=== PATIENT | female | born 2000 | race Hispanic/Latino ===

== ENCOUNTER 2022-03-03 19:41 | Emergency (ER) | payer OTHER, SELFPAY ==
--- NOTE | ~2022-03-03 | US_ITS ---
EXAMINATION: US OB <=14 wk fetus w TV DATE: 03/03/2022 22:08 INDICATION: Vaginal cramping. Evaluate for ectopic . TECHNIQUE: Real-time transabdominal and transvaginal obstetric ultrasound. FINDINGS: No prior studies for comparison. The uterus measures 8.1 x 6.8 x 4.4 cm. There is thickened endometrium measuring 1.8 cm. There is a s mall cyst contained in the endometrium measuring 0.53 cm corresponding to a 5 week 0 day gestation. N o pole identified. The ovaries are within normal limits with a 1.2 cm follicle in the right ova ry. Right ovary measures 3.1 x 2.6 x 2.2 cm. Left ovary measures 3.2 x 2.4 x 2.9 cm. IMPRESSION: 1. Thickened endometrium with possible gestational sac which would correspond to a 5 week 0 day gesta tion. No pole identified. Differential diagnosis includes very early intrauterine and less likely failed and ectopic . Recommend follow-up with serial quantitative bet a-hCG levels and ultrasound as clinically indicated. Reviewed, dictated and finalized at location A. IMPRESSION: 1. Thickened endometrium with possible gestational sac which would correspond t o a 5 week 0 day gestation. No pole identified. Differential diagnosis in cludes very early intrauterine and less likely failed and e ctopic . Recommend follow-up with serial quantitative beta-hCG levels and ultrasound as clinically indicated.
[2022-03-03 19:59] VITALS: BP 141/92; PULSE 114; RESP 20; TEMP 36.4; O2SAT 99
--- NOTE | 2022-03-03 20:51 | ED.ABDPAIN ---
HPI - Abdominal Pain General Chief Complaint: Abdominal Pain Stated Complaint: cramping, + preg test yesterday Time Seen by Provider: 03/03/22 20:16 Source: patient Mode of arrival: ambulatory Limitations: no limitations History of Present Illness HPI narrative: This is a 22 year old female who presents for evaluation of lower abdominal cramping . She states she had positive test yesterday. She developed intermittent lower abdominal cramping at 3 am this morning. Her cramping has increased in frequency although she denies any pain now. Her last menstrual gavi was 01/22/2022. She had nausea and vomiting yesterday. She denies vaginal bleeding or spotting today. She has never been before MD elicited complaint: abdominal pain Related Data Allergies Allergy/AdvReac Type Severity Reaction Status Date / Time No Known Allergies Allergy Verified 03/03/22 20:02 Review of Systems Review of Systems: All systems reviewed & are unremarkable except as noted in HPI and below Cardiovascular: Cardiovascular: Denies chest pain and Denies rapid heart rate Respiratory: Respiratory: Denies chest congestion Gastrointestinal: Gastrointestinal: Reports abdominal pain, Denies diarrhea, Reports nausea and Reports vomiting Genitourinary: Genitourinary: Denies nocturia and Denies dysuria Musculoskeletal: Musculoskeletal: Denies back pain PMFSH Past Medical History Medical History (Updated 03/03/22 @ 23:13 by Odalys Eid MD) Patient denies medical problems Surgical History Surgical History (Updated 03/03/22 @ 20:53 by Odalys Eid MD) No pertinent past surgical history Social History Social History (Updated 03/03/22 @ 20:53 by Odalys Eid MD) Smoking status: Never smoker Exam Narrative: GENERAL: Well-appearing, well-nourished, and in no acute distress. HEAD: Normocephalic, atraumatic EYES: PERRLA and EOMI, conjunctiva clear without discharge NECK: Supple, without lymphadenopathy or mass RESPIRATORY: No respiratory distress, Airway patent, Respirations non-labored, Clear to auscultation without rales, rhonchi or wheeze HEART: Regular rate and rhythm. No murmur heard. Normal peripheral pulses. ABDOMEN: Soft, TTP suprapubic, nondistended, normal active bowel sounds. No masses. No rebound or guarding, No organomegaly. EXTREMITIES: No edema, normal strength with full range of motion. SKIN: Warm, dry, normal color without rash NEURO: Alert and oriented x3. CN 2-12 grossly intact. No focal deficits. PSYCH: Normal mood and affect. Course Reevaluation(s) Reevaluation #1: I Discussed case with Dr. Appiah. She agrees patient should have repeat hcg on and she should call office to [facility] to schedule follow up . Date: 03/03/22 Time: 23:10 Vital Signs Vital signs: Vital Signs Temperature 97.5 F L 03/03/22 19:59 Pulse Rate 114 H 03/03/22 19:59 Respiratory Rate 20 03/03/22 19:59 Blood Pressure 141/92 H 03/03/22 19:59 Pulse Oximetry 99 03/03/22 19:59 Oxygen Delivery Room Air 03/03/22 19:59 Temperature 97.5 F L 03/03/22 19:59 Pulse Rate 114 H 03/03/22 19:59 Respiratory Rate 20 03/03/22 19:59 Blood Pressure 141/92 H 03/03/22 19:59 Pulse Oximetry 99 03/03/22 19:59 Oxygen Delivery Room Air 03/03/22 19:59 MDM - Abdominal Pain Lab Data Attestation: I reviewed the patient's lab results. Result diagrams: 03/03/22 20:56 03/03/22 20:56 Labs: Lab Results 03/03/22 03/03/22 03/03/22 Range/Units 20:56 20:56 20:56 WBC 13.4 H (4.5-10.0) K/mm3 RBC 4.87 (4.2-5.4) M/mm3 Hgb 13.7 (12.0-15.0) g/dL Hct 41.4 (37.0-47.0) % MCV 85.0 (80-100) fl MCH 28.1 (26-34) pg MCHC 33.1 (32-36) g/dl RDW 13.1 (11.5-14.5) % Plt Count 331 (150-375) k/mm3 MPV 10.2 (7.4-10.4) fl Immature Gran % (Auto) 0.3 (0-0.5) % Neut % (Auto) 70.4 (45.5-73.1) % Lymph % (Auto) 22.2
[2022-03-03 21:10] LABS: Basophils Absolute Auto 0.1 K/mm3 (0.0-0.1); Basophils Percent Auto 0.4 % (0.2-1.2); Eosinophils Percent Auto 0.3 % (0-4.4); Hematocrit 41.4 % (37.0-47.0); Hemoglobin 13.7 g/dL (12.0-15.0); Immature Granulocyte Absolute 0.04 K/mm3 (0.00-0.031); Immature Granulocyte Percent A 0.3 % (0-0.5); Lymphocytes Absolute Auto 2.96 K/mm3 (0.9-3.2); Lymphocytes Percent Auto 22.2 % (18.3-44.2); Mean Corpuscular HGB Conc 33.1 g/dl (32-36); Mean Corpuscular Hemoglobin 28.1 pg (26-34); Mean Platelet Volume 10.2 fl (7.4-10.4); Monocytes Absolute Auto 0.9 K/mm3 (0.1-0.6); Monocytes Percent Auto 6.4 % (2.6-8.5); Neutrophils Absolute Auto 9.4 K/mm3 (1.3-6.7); Neutrophils Percent Auto 70.4 % (45.5-73.1); Platelet Count Result 331 k/mm3 (150-375); Red Blood Count 4.87 M/mm3 (4.2-5.4); Red Cell Distribution Width 13.1 % (11.5-14.5); White Blood Count 13.4 K/mm3 (4.5-10.0)
[2022-03-03] MEDS: SODIUM CHLORIDE 0.9% IV 1,000 ML 999 ML IV CONT (21:16)
[2022-03-03 21:20] LABS: Appearance Urine Clear (Clear); Bilirubin Urine Negative (Negative); Blood Urine Negative (Negative); Glucose Urine UA Negative (Negative); Ketones Urine Trace mg/dL (Negative); Leukocyte Esterase Ur Negative LEU/UL (Negative); Nitrate Urine Negative (Negative); Protein Urine Negative (Negative); Urobilinogen Urine 0.2 mg/dL (<2.0)
[2022-03-03 21:24] LABS: Alanine Aminotransferase 18 U/L (6-35); Alkaline Phosphatase 108 U/L (38-126); Anion Gap 11 mmol/L (8-16); Aspartate Amino Transferase 22 U/L (14-36); Bilirubin,Total 0.5 mg/dL (0.2-1.3); Blood Urea Nitrogen 7 mg/dL (7-17); Carbon Dioxide 22 mmol/L (22-30); Chloride 107 mmol/L (98-107); Estimated CRCL calculation 158 ml/min; Estimated Glomerular Filt Rate > 60; Glucose 102 mg/dL (65-110); Potassium 3.6 mmol/L (3.4-5.0); Sodium 140 mmol/L (137-145)
[2022-03-03 21:27] LABS: Add Urine Microscopic? YES; Color Urine Light Yellow (Yellow); Mucus Urine Rare /lpf; RBC Urine 0-2 /hpf (0-2); Squamous Epithelial Cell Urine Rare /hpf (Few); WBC Urine 0-3 /hpf
--- NOTE | 2022-03-03 22:00 | PC.NURSE ---
Pt in US
== END 2022-03-03 23:25 | disposition home or self-care (01) ==
PROVIDERS: Emergency Provider General Practice
DX: O20.0 Threatened abortion (principal)
CPT/HCPCS: 36415; 76801; 76817; 80053; 81001; 81025; 84702; 85025; 85461; 96360; 99284; J7030

== ENCOUNTER 2022-03-05 07:47 | Outpatient (CLI) | payer OTHER, SELFPAY | END 2022-03-05 07:48 | disposition home or self-care (01) | PROVIDERS: Referring Provider Obstetrics & Gynecology Gynecology; Visit Provider General Practice | DX: O20.0 Threatened abortion (principal) | CPT/HCPCS: 36415; 84702 ==

== ENCOUNTER 2022-04-01 08:09 | Outpatient (CLI) | payer OTHER, SELFPAY ==
--- NOTE | ~2022-04-01 | US_ITS ---
EXAMINATION: US OB <= 14 weeks fetus DATE: 04/01/2022 08:58 INDICATION: Back pain. TECHNIQUE: Real-time transabdominal and transvaginal obstetric ultrasound. FINDINGS: 03/03/2022 The uterus measures 10.5 x 5.1 x 7.3 cm. There is an intrauterine gestational sac, with pole id entified. The crown rump length measures 2.14 cm.. heart tones are identified measuring 168 BPM. IMPRESSION: 1. SL IUP with an EGA of 9 weeks, 1 days (EDC by current ultrasound of 11/03/2022). Reviewed, dictated and finalized at location A. IMPRESSION: 1. SL IUP with an EGA of 9 weeks, 1 days (EDC by current ultrasound of ).
== END 2022-04-01 08:10 | disposition home or self-care (01) ==
PROVIDERS: PCP Advanced Practice Midwife; Visit Provider Advanced Practice Midwife
DX: Z34.91 Encounter for supervision of normal pregnancy, unspecified, first trimester (principal); Z3A.09 9 weeks gestation of pregnancy
CPT/HCPCS: 76801

== ENCOUNTER 2022-06-05 09:49 | Outpatient (CLI) | payer OTHER, SELFPAY ==
--- NOTE | ~2022-06-05 | US_ITS ---
EXAMINATION: US OB /maternal detail DATE: 06/05/2022 10:45 INDICATION: Second trimester anatomic survey TECHNIQUE: Real-time ultrasound of the pelvis was performed. COMPARISON: None. FINDINGS: There is a single living fetus in breech presentation. The placenta is fundal. The cervical length is 4.3 cm. heart rate is 142 beats per minute (bpm). cardiac activity and movement a re noted. The amniotic fluid index is subjectively normal. The cerebellum and cisterna magna are not well evaluated due to positioning. The followin g anatomy was identified as normal: 4 chamber heart 3 vessel cord cord insertion kidneys urinary bladder stomach spine diaphragm ventricles The following biometric data were obtained: Biparietal diameter (BPD): 3.75 cm; head circumference (HC): 15.6 cm; abdominal circumference (AC): 1 4.0 cm; femur length (FL): 3.2 cm. These measurements are concordant. Estimated weight is 291 g +/- 43 g, which correlates with the 94th percentile when 11/03/2022 is used as estimated date of delivery. As single measurements, these parameters are each equal to the following estimated gestational ages w ith ranges of +/- 2 standard deviations: BPD: 17 weeks 3 days +/- 1 weeks 1 days. HC: 18 weeks 4 days +/- 1 weeks 3 days. AC: 19 weeks 3 days +/- 2 weeks 0 days. FL: 19 weeks 6 days +/- 1 weeks 6 days. estimated gestational age based solely on measurements from this exam is 18 weeks 6 days +/- 1 weeks 2 days. IMPRESSION: 1. Single living fetus in breech presentation. 2. Estimated weight is 291 g +/- 43 g, which correlates with the 94th percentile when 11/03/2022 is used as estimated date of delivery. 3. cerebellum and cisterna magna not well evaluated due to positioning. Reviewed, dictated and finalized at location F. IMPRESSION: 1. Single living fetus in breech presentation. 2. Estimated weight is 291 g +/- 43 g, which correlates with the 94th per centile when 11/03/2022 is used as estimated date of delivery. 3. cerebellum and cisterna magna not well evaluated due to position ing.
== END 2022-06-05 09:50 | disposition home or self-care (01) ==
LOC: ANHIMG 09:51
PROVIDERS: PCP Advanced Practice Midwife; Visit Provider Advanced Practice Midwife
DX: Z36.9 Encounter for antenatal screening, unspecified (principal)
CPT/HCPCS: 76805

== ENCOUNTER 2022-07-06 09:41 | Outpatient (CLI) | payer OTHER, SELFPAY ==
--- NOTE | ~2022-07-06 | US_ITS ---
EXAMINATION: US OB follow up DATE: 07/06/2022 11:14 INDICATION: Size greater than dates, second trimester, incomplete anatomic survey TECHNIQUE: Real-time ultrasound of the pelvis was performed. The interpreting radiologist was not pre sent for the study. COMPARISON: 06/05/2022 FINDINGS: There is a single living fetus in variable presentation. The placenta is posterior. c ardiac activity and movement are noted. heart rate is 161 beats per minute (bpm). The amn iotic fluid index is subjectively normal. The cerebellum and cisterna magna. The following biometric data were obtained: Biparietal diameter (BPD): 5.4 cm; head circumference (HC): 20.8 cm; abdominal circumference (AC): 18 .5 cm; femur length (FL): 4.3 cm. These measurements are concordant. Estimated weight is 604 g +/- 90 g, which correlates with the 76th percentile when 11/03/2022 is used as estimated date of delivery. As single measurements, these parameters are each equal to the following estimated gestational ages w ith ranges of +/- 2 standard deviations: BPD: 22 weeks 2 days +/- 1 weeks 5 days. HC: 23 weeks 0 days +/- 1 weeks 3 days. AC: 23 weeks 2 days +/- 2 weeks 0 days. FL: 24 weeks 1 days +/- 2 weeks 1 days. estimated gestational age based solely on measurements from this exam is 23 weeks 1 days +/- 1 weeks 4 days. IMPRESSION: 1. Single living fetus in variable presentation. 2. Estimated weight is 604 g +/- 90 g, which correlates with the 76th percentile when 11/03/2022 is used as estimated date of delivery. 3. Normal appearing cerebellum and cisterna magna. Reviewed, dictated and finalized at location F. CER LIEUTENANT IMPRESSION: 1. Single living fetus in variable presentation. 2. Estimated weight is 604 g +/- 90 g, which correlates with the 76th per centile when 11/03/2022 is used as estimated date of delivery. 3. Normal appearing cerebellum and cisterna magna.
== END 2022-07-06 09:42 | disposition home or self-care (01) ==
PROVIDERS: PCP Advanced Practice Midwife; Visit Provider Advanced Practice Midwife
DX: O36.62X0 Maternal care for excessive fetal growth, second trimester, not applicable or unspecified (principal); Z3A.23 23 weeks gestation of pregnancy
CPT/HCPCS: 76816

== ENCOUNTER 2022-09-07 17:19 | Emergency (ER) | payer OTHER, SELFPAY ==
[2022-09-07 17:50] VITALS: BP 124/73; PULSE 114; RESP 18; TEMP 36.4; O2SAT 100
[2022-09-07 18:30] LABS: Basophils Percent Auto 0.2 % (0.2-1.2); Eosinophils Absolute Auto 0.2 K/mm3 (0-0.3); Eosinophils Percent Auto 1.3 % (0-4.4); Hematocrit 32.5 % (37.0-47.0); Hemoglobin 10.7 g/dL (12.0-15.0); Immature Granulocyte Percent A 0.7 % (0-0.5); Lymphocytes Absolute Auto 2.75 K/mm3 (0.9-3.2); Lymphocytes Percent Auto 20.4 % (18.3-44.2); Mean Corpuscular HGB Conc 32.9 g/dl (32-36); Mean Corpuscular Hemoglobin 28.2 pg (26-34); Mean Corpuscular Volume 85.5 fl (80-100); Monocytes Percent Auto 7.3 % (2.6-8.5); Neutrophils Absolute Auto 9.4 K/mm3 (1.3-6.7); Neutrophils Percent Auto 70.1 % (45.5-73.1); Platelet Count Result 267 k/mm3 (150-375); Red Cell Distribution Width 12.7 % (11.5-14.5); White Blood Count 13.5 K/mm3 (4.5-10.0)
[2022-09-07 18:47] LABS: Alanine Aminotransferase 15 U/L (6-35); Albumin Level 3.6 g/dL (3.5-5.1); Alkaline Phosphatase 103 U/L (38-126); Anion Gap 8 mmol/L (8-16); Aspartate Amino Transferase 18 U/L (14-36); Bilirubin,Total 0.1 mg/dL (0.2-1.3); Blood Urea Nitrogen 6 mg/dL (7-17); Carbon Dioxide 21 mmol/L (22-30); Chloride 108 mmol/L (98-107); Estimated CRCL calculation 206 ml/min; Estimated Glomerular Filt Rate > 60; Glucose 99 mg/dL (65-110); Lipase 69 U/L (23-300); Potassium 3.9 mmol/L (3.4-5.0); Sodium 137 mmol/L (137-145)
[2022-09-07 19:31] VITALS: BP 134/72; PULSE 103; RESP 20; O2SAT 100
[2022-09-07] MEDS: ONDANSETRON INJ 4 MG/2 ML VIAL IV PUSH (20:08)
[2022-09-07] MEDS: SODIUM CHLORIDE 0.9% IV 1,000 ML 999 ML IV CONT (20:08)
[2022-09-07 21:23] VITALS: BP 123/77; PULSE 102; RESP 20; O2SAT 100
[2022-09-07 21:32] LABS: Appearance Urine Clear (Clear); Bilirubin Urine Negative (Negative); Blood Urine Negative (Negative); Color Urine Yellow (Yellow); Glucose Urine UA Negative (Negative); Ketones Urine Negative (Negative); Leukocyte Esterase Ur Negative LEU/UL (Negative); Nitrate Urine Negative (Negative); Protein Urine Negative (Negative); Urobilinogen Urine 0.2 mg/dL (<2.0)
--- NOTE | 2022-09-07 21:32 | ED.NAVMDI ---
HPI - Nausea/Vomiting/Diarrhea General Chief complaint: Nausea/Vomiting/Diarrhea Stated complaint: N/V 32 weeks Time Seen by Provider: 09/07/22 19:36 History of Present Illness HPI Narrative: Patient is a 22-year-old female who presents ER with nausea and vomiting. Ongoing for 4 days. Has had persistent nausea and had vomiting several times yesterday. No diarrhea. No abdominal pain. Patient is 32 weeks in gestation. No vaginal bleeding or vaginal discharge. She was seen over an OB and sent here. She reports no decrease in movement. Has found no alleviating factors at home. Related Data Allergies Allergy/AdvReac Type Severity Reaction Status Date / Time No Known Allergies Allergy Verified 09/07/22 19:31 Review of Systems Review of Systems: All systems reviewed & are unremarkable except as noted in HPI and below Constitutional: Constitutional: Denies chills, Denies fatigue and Denies fever(s) ENT: Denies nasal congestion and Denies sore throat Cardiovascular: Cardiovascular: Denies chest pain, Denies rapid heart rate and Denies radiating jaw, neck or arm pain Respiratory: Respiratory: Denies cough and Denies dyspnea Gastrointestinal: Gastrointestinal: Denies abdominal pain, Denies diarrhea, Reports nausea and Reports vomiting Genitourinary: Genitourinary: Denies hematuria, Denies nocturia and Denies dysuria PMFSH Past Medical History Medical History (Updated 09/07/22 @ 21:36 by Agus Fields MD) Patient denies medical problems Surgical History Surgical History (Updated 03/03/22 @ 20:53 by Odalys Eid MD) No pertinent past surgical history Social History Social History (Updated 03/03/22 @ 20:53 by Odalys Eid MD) Smoking status: Never smoker Exam Narrative: GENERAL: Well-appearing, well-nourished, and in no acute distress. HEAD: Normocephalic, atraumatic. ENT: Mucous membranes moist. TMs normal bilaterally. CHEST: Clear to auscultation. No respiratory distress. HEART: Regular rate and rhythm. Normal peripheral pulses. ABDOMEN: Soft, nontender, gravid. EXTREMITIES: Normal range of motion. No edema. SKIN: Warm, dry, no rash. NEURO: Alert and oriented x3. PSYCH: Normal mood and affect. Course Course Emergency Course: Patient feels improved with fluids and antiemetics. She has now developed a slight headache and is requesting some Tylenol which will be provided. Lab work including urine/BMP unremarkable. Patient with mild leukocytosis which can be seen in . Patient with known history of anemia. Patient be discharged with oral Zofran and recommend follow-up with her OB. Vital Signs Vital signs: Vital Signs Temperature 97.6 F 09/07/22 17:50 Pulse Rate 114 H 09/07/22 17:50 Respiratory Rate 18 09/07/22 17:50 Blood Pressure 124/73 09/07/22 17:50 Pulse Oximetry 100 09/07/22 17:50 Oxygen Delivery Room Air 09/07/22 17:50 Temperature 97.6 F 09/07/22 17:50 Pulse Rate 102 H 09/07/22 21:23 Respiratory Rate 20 09/07/22 21:23 Blood Pressure 123/77 09/07/22 21:23 Pulse Oximetry 100 09/07/22 21:23 Oxygen Delivery Room Air 09/07/22 17:50 MDM - Nausea/Vomiting/Diarrhea Lab Data 09/07/22 18:20 09/07/22 18:20 Labs: Lab Results 09/07/22 09/07/22 09/07/22 Range/Units 18:20 18:20 21:21 WBC 13.5 H (4.5-10.0) K/mm3 RBC 3.80 L (4.2-5.4) M/mm3 Hgb 10.7 L D (12.0-15.0) g/dL Hct 32.5 L (37.0-47.0) % MCV 85.5 (80-100) fl MCH 28.2 (26-34) pg MCHC 32.9 (32-36) g/dl RDW 12.7 (11.5-14.5) % Plt Count 267 (150-375) k/mm3 MPV 10.0 (7.4-10.4) fl Immature Gran % (Auto) 0.7 H (0-0.5) % Neut % (Auto) 70.1 (45.5-73.1) % Lymph % (Auto) 20.4 (18.3-44.2) % Wells % (Auto) 7.3 (2.6-8.5) % Eos % (Auto) 1.3 (0-4.4) % Baso % (Auto) 0.2 (0.2-1.2) % Lymph # (Auto) 2.75 (0.9-3.2) K/mm3 Wells # (Auto) 1.0 H (0.1-0.6)
[2022-09-07 21:34] LABS: Bacteria Urine Trace /hpf; Mucus Urine Rare /lpf; RBC Urine 0-2 /hpf (0-2); Squamous Epithelial Cell Urine Many /hpf (Few); WBC Urine 0-3 /hpf
[2022-09-07 21:36] LABS: Add Urine Microscopic? YES
[2022-09-07] MEDS: ACETAMINOPHEN 325 MG TABLET 650 MG PO (21:41)
== END 2022-09-07 21:51 | disposition home or self-care (01) ==
PROVIDERS: Emergency Medicine; Emergency Provider Emergency Medicine; PCP Obstetrics & Gynecology Gynecology
DX: O21.9 Vomiting of pregnancy, unspecified (principal); O99.013 Anemia complicating pregnancy, third trimester; D64.9 Anemia, unspecified; Z3A.32 32 weeks gestation of pregnancy
CPT/HCPCS: 36415; 80053; 81001; 83690; 85025; 96361; 96374; 99284; A9270; J2405; J7030

== ENCOUNTER 2022-09-23 08:08 | Outpatient (CLI) | payer OTHER, SELFPAY ==
--- NOTE | ~2022-09-23 | US_ITS ---
EXAMINATION: US OB follow up DATE: 09/23/2022 12:14 INDICATION: Size greater than dates during third trimester TECHNIQUE: Real-time ultrasound of the pelvis was performed. The interpreting radiologist was not pre sent for the study. COMPARISON: None. FINDINGS: There is a single living fetus in vertex presentation. The placenta is posterior. car diac activity and movement are noted. heart rate is 153 beats per minute (bpm). The amnio tic fluid index is 9.8 cm which is normal (normal range: 8.1 cm to 24.8 cm). The following biometric data were obtained: Biparietal diameter (BPD): 8.5 cm; head circumference (HC): 32.3 cm; abdominal circumference (AC): 30 .3 cm; femur length (FL): 7.1 cm. These measurements are concordant. Estimated weight is 2578 g +/- 386 g, which correlates with the 71st percentile when 11/03/2022 is used as estimated date of delivery. As single measurements, these parameters are each equal to the following estimated gestational ages w ith ranges of +/- 2 standard deviations: BPD: 34 weeks 3 days +/- 3 weeks 1 days. HC: 36 weeks 4 days +/- 2 weeks 5 days. AC: 34 weeks 2 days +/- 3 weeks 0 days. FL: 36 weeks 2 days +/- 3 weeks 0 days. estimated gestational age based solely on measurements from this exam is 35 weeks 3 days +/- 2 weeks 3 days. IMPRESSION: 1. Single living fetus in vertex presentation. 2. Normal amniotic fluid index. 3. Estimated weight is 2578 g +/- 386 g, which correlates with the 71st percentile when 11/04/19 23 is used as estimated date of delivery. Reviewed, dictated and finalized at location F. OSITION FLOOR SETTER IMPRESSION: 1. Single living fetus in vertex presentation. 2. Normal amniotic fluid index. 3. Estimated weight is 2578 g +/- 386 g, which correlates with the 71st p ercentile when 11/03/2022 is used as estimated date of delivery.
== END 2022-09-23 08:09 | disposition home or self-care (01) ==
PROVIDERS: PCP Obstetrics & Gynecology Gynecology; Visit Provider Advanced Practice Midwife
DX: O36.63X0 Maternal care for excessive fetal growth, third trimester, not applicable or unspecified (principal)
CPT/HCPCS: 76816

== ENCOUNTER 2022-10-03 22:01 | Outpatient (CLI) | payer OTHER, SELFPAY ==
[2022-10-03 22:30] VITALS: BP 122/71; PULSE 106
[2022-10-03 22:44] LABS: Appearance Urine Clear (Clear); Basophils Percent Auto 0.3 % (0.2-1.2); Bilirubin Urine Negative (Negative); Blood Urine Negative (Negative); Color Urine Yellow (Yellow); Eosinophils Absolute Auto 0.2 K/mm3 (0-0.3); Eosinophils Percent Auto 1.4 % (0-4.4); Glucose Urine UA Negative (Negative); Hemoglobin 11.1 g/dL (12.0-15.0); Immature Granulocyte Absolute 0.05 K/mm3 (0.00-0.031); Immature Granulocyte Percent A 0.5 % (0-0.5); Ketones Urine Negative (Negative); Leukocyte Esterase Ur Negative LEU/UL (NEGATIVE); Lymphocytes Absolute Auto 2.59 K/mm3 (0.9-3.2); Lymphocytes Percent Auto 24.2 % (18.3-44.2); Mean Corpuscular HGB Conc 33.6 g/dl (32-36); Mean Corpuscular Volume 83.1 fl (80-100); Monocytes Absolute Auto 0.9 K/mm3 (0.1-0.6); Monocytes Percent Auto 8.4 % (2.6-8.5); Neutrophils Percent Auto 65.2 % (45.5-73.1); Nitrate Urine Negative (Negative); Platelet Count Result 239 k/mm3 (150-375); Protein Urine Negative (Negative); Red Blood Count 3.97 M/mm3 (4.2-5.4); Specific Grav Ur 1.015 (1.001-1.035); Urobilinogen Urine 0.2 mg/dL (<2.0); White Blood Count 10.7 K/mm3 (4.5-10.0)
[2022-10-03 22:46] VITALS: BP 111/56; PULSE 89
[2022-10-03 22:47] LABS: Glucose Point of Care 91 mg/dl (65-105)
[2022-10-03 22:52] LABS: RBC Urine 0-2 /hpf (0-2); Squamous Epithelial Cell Urine Occasional /hpf (Few); WBC Urine 0-3 /hpf (0-3)
[2022-10-03 22:53] LABS: Add Urine Microscopic? NO
[2022-10-03 22:54] LABS: Creatinine Urine 56.8 mg/dL; Total Protein Urine Random 14 mg/dL; Ur Ttl Prot Creatinine Ratio 0.25 mg/mg (0-0.20)
[2022-10-03 23:01] VITALS: BP 122/72; PULSE 99
[2022-10-03 23:06] LABS: Alanine Aminotransferase 14 U/L (6-35); Albumin Level 3.5 g/dL (3.5-5.1); Alkaline Phosphatase 132 U/L (38-126); Anion Gap 5 mmol/L (8-16); Aspartate Amino Transferase 19 U/L (14-36); Bilirubin,Total 0.4 mg/dL (0.2-1.3); Blood Urea Nitrogen 8 mg/dL (7-17); Calcium 9.1 mg/dL (8.4-10.2); Carbon Dioxide 24 mmol/L (22-30); Chloride 107 mmol/L (98-107); Estimated Glomerular Filt Rate > 60; Glucose 89 mg/dL (65-110); Potassium 3.9 mmol/L (3.4-5.0); Sodium 136 mmol/L (137-145); Uric Acid 3.6 mg/dL (2.5-7.5)
[2022-10-03 23:16] VITALS: BP 103/53; PULSE 100
[2022-10-03 23:47] VITALS: BP 122/71; PULSE 89
--- NOTE | 2022-10-04 | PC.NURSE ---
7187 DR. STARKS RESPONDS TO ANSWERING SERVICE PAGE. LABS REVIEWED. MATERNAL AND STATUS REPORTED. DISCHARGE ORDERS RECEIVED.
--- NOTE | 2022-10-04 00:01 | PC.NURSE ---
[address] HOLM PRESENTS WITH COMPLAINTS OF HEADACHE AND SPOTS IN HER VISION SINCE 2029 THIS EVENING. PT STATES THAT SHE TOOK 1000 MG OF TYLENOL PO AT 2117 WITH NO RELIEF. EDC 11/03/2022, GA 35.4. PT STATES +FM AND DENIES VAGINAL BLEEDING OR LOF.
== END 2022-10-03 23:35 | disposition home or self-care (01) ==
LOC: ANHOBOP 22:08 → ANHOBPP 10-08 06:32
PROVIDERS: Obstetrics & Gynecology; PCP Obstetrics & Gynecology Gynecology; Visit Provider Obstetrics & Gynecology Gynecology
DX: O13.9 Gestational [pregnancy-induced] hypertension without significant proteinuria, unspecified trimester (principal)
CPT/HCPCS: 36415; 59025; 80053; 81003; 82570; 82948; 84156; 84550; 85025; 87086; 99199

== ENCOUNTER 2022-10-19 14:22 | Outpatient (CLI) | payer OTHER, SELFPAY ==
[2022-10-19] VITALS (7 sets, daily range): BP systolic 93–117; BP diastolic 62–77; PULSE 95–104; BMI 48.7
--- NOTE | 2022-10-19 14:23 | OBADM ---
This patient, Areli Gunderson, admitted to the OB room OB Post 116 for observation. Patient/family oriented to hospital policies and general routines including ID bracelet, bed and alarms, visiting hours, pain management, procedures, bathroom and other care routines, personal items, smoking policy, room service/diet, and visiting hours. Patient/Family are encouraged to report perceived risks to care and to ask questions if they do not understand what they are told or what they should do.
[2022-10-19] MEDS: ACETAMINOPHEN 500 MG TABLET 1000 MG PO (14:50)
[2022-10-19 14:56] LABS: Basophils Percent Auto 0.4 % (0.2-1.2); Eosinophils Absolute Auto 0.1 K/mm3 (0-0.3); Hematocrit 35.2 % (37.0-47.0); Hemoglobin 11.6 g/dL (12.0-15.0); Immature Granulocyte Absolute 0.05 K/mm3 (0.00-0.031); Immature Granulocyte Percent A 0.5 % (0-0.5); Lymphocytes Absolute Auto 1.99 K/mm3 (0.9-3.2); Mean Corpuscular Hemoglobin 27.8 pg (26-34); Mean Corpuscular Volume 84.4 fl (80-100); Mean Platelet Volume 10.5 fl (7.4-10.4); Monocytes Absolute Auto 0.7 K/mm3 (0.1-0.6); Monocytes Percent Auto 7.1 % (2.6-8.5); Neutrophils Absolute Auto 7.1 K/mm3 (1.3-6.7); Platelet Count Result 248 k/mm3 (150-375); Red Blood Count 4.17 M/mm3 (4.2-5.4); Red Cell Distribution Width 13.3 % (11.5-14.5); White Blood Count 9.9 K/mm3 (4.5-10.0)
[2022-10-19 15:04] LABS: Creatinine Urine 45.8 mg/dL; Total Protein Urine Random 9 mg/dL
[2022-10-19 15:19] LABS: Alanine Aminotransferase 14 U/L (6-35); Albumin Level 3.6 g/dL (3.5-5.1); Alkaline Phosphatase 166 U/L (38-126); Anion Gap 5 mmol/L (8-16); Aspartate Amino Transferase 20 U/L (14-36); Bilirubin,Total 0.4 mg/dL (0.2-1.3); Blood Urea Nitrogen 7 mg/dL (7-17); Calcium 9.1 mg/dL (8.4-10.2); Carbon Dioxide 21 mmol/L (22-30); Chloride 105 mmol/L (98-107); Estimated CRCL calculation 215 ml/min; Estimated Glomerular Filt Rate > 60; Glucose 110 mg/dL (65-110); Potassium 3.8 mmol/L (3.4-5.0); Sodium 131 mmol/L (137-145); Uric Acid 3.5 mg/dL (2.5-7.5)
[2022-10-19 15:27] LABS: Appearance Urine Clear (Clear); Bilirubin Urine Negative (Negative); Blood Urine Negative (Negative); Color Urine Yellow (Yellow); Glucose Urine UA Negative (Negative); Ketones Urine Negative (Negative); Leukocyte Esterase Ur Negative LEU/UL (NEGATIVE); Nitrate Urine Negative (Negative); Protein Urine Negative (Negative); Specific Grav Ur 1.015 (1.001-1.035); Urobilinogen Urine 0.2 mg/dL (<2.0)
[2022-10-19 15:36] LABS: Add Urine Microscopic? NO
--- NOTE | 2022-10-19 15:40 | PC.NURSE ---
Josefina BELTRÁN updated on pt vital signs and lab work. Order received for pt to be discharged and complete 24 hour urine.
--- NOTE | 2022-10-19 15:58 | PC.NURSE ---
24 hour urine instructions explained to the pt. Pt states she understands. [facility] handout also given and explained to the pt. Pt educated to come back to hospital if she develops any symptoms. Pt states she understands.
== END 2022-10-19 16:04 | disposition home or self-care (01) ==
LOC: ANHOBOP 14:25 → ANHOBPP 14:26
PROVIDERS: Advanced Practice Midwife; Visit Provider Obstetrics & Gynecology Gynecology
DX: O13.9 Gestational [pregnancy-induced] hypertension without significant proteinuria, unspecified trimester (principal)
CPT/HCPCS: 36415; 59025; 80053; 81003; 82570; 84156; 84550; 85025; 87086; 99199; A9270

== ENCOUNTER 2022-10-20 16:49 | Outpatient (NON) | payer OTHER, SELFPAY ==
[2022-10-20 17:36] LABS: Collection Time Urine 24 HOURS
[2022-10-20 17:38] LABS: Patient Weight 258 Lbs; Total Volume 24 Hour Urine 2300 ml
[2022-10-20 17:54] LABS: Creatinine Clearance Urine 210.4 ml/min (75-125); Creatinine Urine 63.9 mg/dL; Total Protein Urine 24 Hr 184 mg/24hr (28-141); Total Protein Urine Random 8 mg/dL
== END 2022-10-20 16:50 | disposition home or self-care (01) ==
LOC: ANHOBOP 16:56
PROVIDERS: Visit Provider Obstetrics & Gynecology Gynecology
DX: O13.9 Gestational [pregnancy-induced] hypertension without significant proteinuria, unspecified trimester (principal)
CPT/HCPCS: 81050; 82575; 84156

== ENCOUNTER 2022-10-28 05:58 | Inpatient (IN) | payer OTHER, SELFPAY ==
[2022-10-28] VITALS (177 sets, daily range): BP systolic 81–179; BP diastolic 34–144; PULSE 33–201; RESP 18; TEMP 36.1–39.4; O2SAT 74–100; BMI 47.0
[2022-10-28 06:51] LABS: Basophils Percent Auto 0.3 % (0.2-1.2); Eosinophils Absolute Auto 0.2 K/mm3 (0-0.3); Hematocrit 31.8 % (37.0-47.0); Hemoglobin 10.7 g/dL (12.0-15.0); Immature Granulocyte Absolute 0.04 K/mm3 (0.00-0.031); Immature Granulocyte Percent A 0.4 % (0-0.5); Lymphocytes Absolute Auto 2.42 K/mm3 (0.9-3.2); Lymphocytes Percent Auto 24.3 % (18.3-44.2); Mean Corpuscular HGB Conc 33.6 g/dl (32-36); Mean Corpuscular Volume 83.2 fl (80-100); Mean Platelet Volume 10.5 fl (7.4-10.4); Monocytes Absolute Auto 0.9 K/mm3 (0.1-0.6); Monocytes Percent Auto 8.5 % (2.6-8.5); Neutrophils Absolute Auto 6.4 K/mm3 (1.3-6.7); Neutrophils Percent Auto 64.5 % (45.5-73.1); Platelet Count Result 216 k/mm3 (150-375); Red Blood Count 3.82 M/mm3 (4.2-5.4); Red Cell Distribution Width 13.5 % (11.5-14.5)
[2022-10-28] MEDS: OXYTOCIN 30 UNITS/NS 500 ML 30 UNITS/500 ML BAG IV CONT (07:50)
[2022-10-28] MEDS: LACTATED RINGERS 1,000 ML 125 ML IV CONT ×3 (07:50→17:01)
--- NOTE | 2022-10-28 07:50 | WPDOBADMIT ---
Obstetrics - Admit Note Admission Note: record reviewed. No pertinent additions to the history and/or any subsequent changes in the physical findings that are not consistent with the expected course of the were found. Additions to the history and/or subsequent changes in the physical findings follow. None.
--- NOTE | 2022-10-28 07:50 | PM.OBPNLAB ---
Pain Control Date/time seen: 10/28/22 07:45 Pain control: tolerating well Comments: Denies regular contractions. No other complaints. FOB present and supportive. Pelvic Exam Dilation (cm): 1 (1.5 cm) Effacement (%): 75 station: -2 Amniotic membrane status: Intact Comments: head well applied to cervix. Contractions Monitor mode: External Contraction pattern: Irregular Contraction intensity: Mild Status status: Category l Comments: accelerations present Assessment and Plan Assessment: induction ongoing Comments: CNM to bedside. Discussed plan of care an option for amniotomy and IUPC placement. Discussed risks, benefits, and expectations of breaking water and IUPC placement. Patient is agreeable. Amniotomy performed and there was a small return of clear amniotic fluid. IUPC inserted easily and clear fluid returned. Patient tolerated procedure well. Plan to start pitocin and increase as needed to achieve adequate contraction pattern. Recommend frequent position changes. Anticipate vaginal . Dr. Appiah updated on pt status.
--- NOTE | 2022-10-28 07:55 | P.PCNOB_ITS ---
OB - Delivery Note Procedure Delivery date: 10/28/22 Procedure: Induction method: Per Pitocin Protocol Delivery augmentation: Rupture of Membranes Delivery monitor: External FHT, External Uterine and Internal Uterine Route of delivery: Episiotomy description: None Laceration Description: Vaginal (hymenal ring. ) Delivery repair: vicryl Specimen: Yes Quantitative Blood Loss (ml): 50 Anesthesia type: Epidural Disposition: Floor Narrative: Areli made steady cervical change to complete dilation and began pushing with contractions. After delivery of the head there was fair restitution and a loose nuchal cord was identified. With the next push, she easily delivered the anterior and posterior shoulders as well as remainder of the infant. The nuchal cord was reduced and the was placed on the maternal abdomen and care was transferred to the nursery team. After 1 minute of life, the cord was doubly clamped and cut. Cord gases and cord segment were obtained as well as cord blood. Also delivery counts were correct. There was excellent hemostasis. Mom and baby are skin in the delivery room. [place] Baby Date of : 10/28/22 Time of : 18:58 Weeks of gestation at delivery: 39 Infant gender: Male Weight (pounds): 0 (weight unavailable at the time of this note) presentation: vertex position: Right Occiput Anterior Placenta delivery description: Spontaneous Cord Vessel Description: 3 Vessels, Nuchal Cord, Loose, Clamped/Cut and Delayed Cord Clamping score one minute: 8 score five minutes: 9
--- NOTE | 2022-10-28 07:55 | PM.OBDSVD ---
DS: Admitting Diagnosis Discharge Date 10/30/22 Admitting Diagnosis 22 y.o. at 39 weeks Induction of labor Rubella Non-Immune DS: Discharge Diagnosis Discharge Diagnosis (1) Mother currently breast-feeding: Code(s): Z39.1 - Encounter for care and examination of lactating mother Status: Acute (2) (normal spontaneous vaginal delivery): Code(s): O80 - Encounter for full-term uncomplicated delivery Status: Acute OB - DS: Summary OB Procedures : Ultrasound OB Procedures Intrapartum: Spontaneous Vag Delivery OB Procedures: : Rubella lg Peripartum Data Infant Delivery Method: Natural Vaginal Laceration Description: Vaginal - 1st Degree (hymenal ring) Episiotomy description: None complications: none Status at Discharge Overall status at discharge: patient is progressing back to baseline Time Spent with Patient Time attestation: Total time spent providing and/or coordinating discharge services: DS: Data Data Completed and Pending Labs on day of discharge: Labs from last 24 hours 10/28/22 10/28/22 06:26 06:26 WBC 10.0 RBC 3.82 L Hgb 10.7 L Hct 31.8 L MCV 83.2 MCH 28.0 MCHC 33.6 RDW 13.5 Plt Count 216 MPV 10.5 H Immature Gran % (Auto) 0.4 Neut % (Auto) 64.5 Lymph % (Auto) 24.3 Real % (Auto) 8.5 Eos % (Auto) 2.0 Baso % (Auto) 0.3 Lymph # (Auto) 2.42 Real # (Auto) 0.9 H Eos # (Auto) 0.2 Baso # (Auto) 0.0 Abs Immat Gran (auto) 0.04 H Absolute Neuts (auto) 6.4 Absolute Nucleated RBC 0.0 Nucleated RBC % 0.0 RPR Pending Discharge Plan Discharge Attending physician on discharge: Spring Appiah Discharging Clinician: Spring Appiah Anticipated Discharge Date/Time: 10/30/22 13:00 Patient Disposition: Home, Self-Care Activity: may shower Diet: as tolerated and regular Discharge Instructions: Education: Mom and Baby Guide Given to: Mother Follow-Up: Call your delivering provider's office for an appointment to be seen in: 6 Weeks Mom and baby should come to the [facility] for the follow-up appointment. Appointment Date/Time: October 31, 2022 at 9:00 am What to expect at your follow-up visit: Blood Pressure Check Physical Assessment Call [phone] if you are unable to keep your appointment time. BREAST CARE: * Wear a snug supportive bra. * For engorgement discomfort: Breast Feeding: * Apply warm moist washcloths * Express milk as needed to relieve engorgement * Wear loose clothing Bottle Feeding: * May apply ice packs * For sore nipples: * Identify correct latch-on * Apply warm moist washcloths before and after nursing * Air dry nipples after nursing * May apply Lansinoh cream to nipples EPISIOTOMY/PERINEAL CARE: * Until bleeding stops, use your varinder bottle after urinating * Change your pad frequently throughout the day * You may take sitz baths several times a day (fill your bathtub with warm water and soak for 20 minutes.) Do NOT bathe in the water * No tub baths until seen by your physician - You may shower ACTIVITY: * Rest as much as possible. * Do not exercise or lift anything heavier than your baby (such as laundry or other children.) * Avoid stairs or driving as much as possible. * Do not put anything into the vagina. No douching, tampons, or sexual activity until seen by physician. NOTIFY PHYSICIAN IF YOU HAVE ANY QUESTIONS OR IF ANY OF THE FOLLOWING SYMPTOMS OCCUR: * If your episiotomy or incision becomes red, swollen, or more painful than what you have experienced in the hospital. * If your vaginal bleeding becomes foul smelling. * If your vaginal bleeding becomes more heavy than a period or if your bleeding changes from pink to bright red. However, you may pass an occasional walnut-sized clot once or twice for the first week . * If you experience
[2022-10-28 10:05] LABS: Rapid Plasma Reagin Non-Reactive (NonReactive)
[2022-10-28] MEDS: fentaNYL CITRATE INJ (*CRX) 100 MCG/2 ML VIAL IV PUSH (12:17)
[2022-10-28] MEDS: OXYTOCIN 30 UNITS/NS 500 ML 30 UNITS/500 ML BAG 125 UNITS IV CONT (19:31)
[2022-10-28] MEDS: BENZOCAINE 20% AER SPR (*SP) 56 GM CAN 1 SPRAY TOPICAL (21:48)
[2022-10-28] MEDS: WITCH HAZEL 40 PADS 1 PAD TOPICAL (21:48)
[2022-10-28] MEDS: IBUPROFEN 600 MG TABLET PO (21:56)
--- NOTE | 2022-10-28 22:10 | OBPPTRN ---
Patient transferred to post room #286 via W/C. Support person present. Oriented to unit, room, information board, rooming in, admission packet and security measures. Patient verbalizes understanding.
[2022-10-29 04:20] VITALS: BP 117/71; PULSE 90; RESP 18; TEMP 36.6
[2022-10-29] MEDS: IBUPROFEN 600 MG TABLET PO ×3 (04:20→17:37)
[2022-10-29 05:24] LABS: Hematocrit 29.8 % (37.0-47.0); Hemoglobin 9.8 g/dL (12.0-15.0)
--- NOTE | 2022-10-29 07:30 | PC.NURSE ---
PT introductions made and plan of care discussed per post , pain management, breast feeding, daily care activities. PT sole recipients of such instructions this shift and no barriers to learning identified at this time. PT received instructions per one to one discussion, mom baby care guide and demonstrations . PT verbalized understanding of such care.
--- NOTE | 2022-10-29 07:40 | PM.OBPNVD ---
OB - PN: Subj Subjective Date/time seen: 10/29/22 07:40 Patient comments: no complaints and pain well controlled baby status: doing well OB - PN: Obj Data Labs 10/29/22 04:14 Labs: Laboratory Results - last 24 hr 10/28/22 10/28/22 10/29/22 06:26 06:26 04:14 Hgb 9.8 L Hct 29.8 L RPR Non-reactive Blood Type A Positive Antibody Screen Negative OB - PN A/P Plan day: 1 Plan: routine care Time Spent With Patient Time: Total time spent is greater than 50% in coordination of care (as documented) at patient's floor/unit and/or counseling patient: Exam : Bimanual exam- vagina & uterus: other (Uterus firm, nt @U)
[2022-10-29 08:05] VITALS: BP 109/64; PULSE 90; RESP 16; TEMP 36.7; O2SAT 100
[2022-10-29 11:30] VITALS: PULSE 90; RESP 16; O2SAT 100
[2022-10-29] MEDS: ACETAMINOPHEN 325 MG TABLET 650 MG PO ×2 (11:41→17:35)
[2022-10-29] MEDS: POLYSACCHARIDE IRON COMPLEX 150 MG CAPSULE PO ×2 (11:43→17:38)
[2022-10-29] MEDS: MULTIVIT/MIN/PREN/FOL AC/IRON TABLET 1 TAB PO (11:43)
[2022-10-29] MEDS: DOCUSATE SODIUM 100 MG CAPSULE PO ×2 (11:43→17:38)
--- NOTE | 2022-10-29 14:08 | PC.NURSE ---
[id number] Introductions were made, then consulted with patient to assess needs related to . Mother led the conversation with her?plans to feed?her infant and the?experience so far. Resources provided for inpatient and outpatient services with the feeding sheet, mom/baby guide, business card and name written on the white board. Mother voiced understanding of information and requested assistance. Mother states her hasn't had a good feeding or any breast milk since 0330. Blood sugar was checked and resulted at 69mg/dl. Mother works well with her infant with encouragement and education. Encouraged understanding of the benefits of skin to skin (demonstrating unwrapping and placing upright on her chest), stimulating with massage touch, changing positions to encourage wakefulness, how to watch for early feeding cues, hand expression, responsive feeding, feeding on demand (aiming for 8-12 times in 24 hours, about every 2-3 hours), milk production, building/maintaining a milk supply, duration of feeding, signs of adequate intake/output and how to record on the feeding sheet. Mother requests a pump to stimulate before attempting to latch her . Reviewed positioning and ear, shoulder, hip alignment, supporting the breast to facilitate a deep latch, asymmetrical latch (off-center), leading with the chin with a big, open, wide gape and body close to mother. Attempts were made with no latch. Infant is sleepy, reluctant, spitty and gaggy. A decision was made to initiate pumping. 1205 - Breast pump provided due to ineffective . Instructions given on cleaning, care, usage, that there should be no pain, pumping schedule for milk production, collection, and storage of human milk. Parents are encouraged to record pumping schedule on the feeding sheet. Patient was assessed for correct placement, flange size, to pump for comfort and nipple stretching/stimulation for adequate milk production every 3 hours (8 times in 24 hours) 1-2 times at night. With infant skin to skin during pumping, then after pumping for a few minutes began to demonstrate feeding cues. Infant latched optimally to the left breast in football position. Education given to mother of how to visualize suck/swallow ratios and listen for drinking at the breast. was able to maintain latch without discomfort to mother. Nipple care reviewed with optimal latch and good positioning. Reviewed good handwashing when or touching the breast/nipples to prevent infection. Mother voiced understanding of skin to skin, stimulating with massage touch, responsive feedings, hand expressed colostrum, talking to infant to encourage if it has been 2 -2.5 hours since the start of the last , to call if does not latch, or if there is discomfort with . Resources provided for inpatient/outpatient with business card, feeding sheet and the mom/baby guide. Mother voiced understanding of information, demonstrated learning and will call if there is a request for assistance. Reported to the primary RN.
[2022-10-29 17:00] VITALS: BP 120/74; PULSE 88; RESP 18; TEMP 37.1; O2SAT 100
[2022-10-29 19:00] VITALS: BP 117/79; PULSE 87; RESP 18; TEMP 36.6
[2022-10-30] MEDS: IBUPROFEN 600 MG TABLET PO (04:26)
--- NOTE | 2022-10-30 07:47 | PM.OBPNVD ---
OB - PN: Subj Subjective Date/time seen: 10/30/22 07:47 Patient comments: no complaints and pain well controlled baby status: doing well OB - PN: Obj Data Labs 10/29/22 04:14 OB - PN A/P Plan day: 2 Plan: routine care, discharge home, follow up 6 weeks and other (plans condoms until [place]) Time Spent With Patient Time: Total time spent is greater than 50% in coordination of care (as documented) at patient's floor/unit and/or counseling patient: Exam : Bimanual exam- vagina & uterus: other (Uterus firm, nt @U)
[2022-10-30 08:40] VITALS: BP 109/64; PULSE 97; RESP 18; TEMP 36.9; O2SAT 100
[2022-10-30] MEDS: DOCUSATE SODIUM 100 MG CAPSULE PO (09:05)
[2022-10-30] MEDS: POLYSACCHARIDE IRON COMPLEX 150 MG CAPSULE PO (09:05)
[2022-10-30] MEDS: MULTIVIT/MIN/PREN/FOL AC/IRON TABLET 1 TAB PO (09:06)
[2022-10-30] MEDS: ACETAMINOPHEN 325 MG TABLET 650 MG PO (09:06)
--- NOTE | 2022-10-30 10:52 | PC.NURSE ---
[id number] Mother verbalizes she is able to independently latch with appropriate positioning/alignment. She denies any nipple discomfort and is responsively . Mother states some feedings are better than others but the last one she heard swallowing. Mother voiced she is confident with her ability to breastfeed and it is getting easier. is currently meeting outcomes for weight, output, jaundice and feeding frequencies of 8-12 times in 24 hours. Mother declines any additional assistance/education at this time after questions were answered and discussed. Mother is encouraged to call for assistance if her infant doesn?t latch or there is discomfort with latching. Mother voiced understanding of information shared and the mom reminded of the mom/baby guide for an additional resource. Reported to the primary RN.
[2022-10-30] MEDS: MEASLES,MUMPS,RUBELLA VACCINE 0.5 ML VIAL SUB-Q (14:31)
[2022-10-31 09:31] VITALS: BP 127/71; PULSE 93; RESP 18; TEMP 37.6; O2SAT 99
== END 2022-10-30 17:25 | disposition home or self-care (01) | DRG 560 ==
LOC: ANHLDR 19:31 → ANHOB2 22:36
PROVIDERS: Admitting Provider Advanced Practice Midwife; Visit Provider Obstetrics & Gynecology Gynecology
DX: O69.81X0 Labor and delivery complicated by cord around neck, without compression, not applicable or unspecified (principal); O71.4 Obstetric high vaginal laceration alone; Z37.0 Single live birth; Z3A.39 39 weeks gestation of pregnancy
CPT/HCPCS: 36415; 85014; 85018; 85025; 86592; 86850; 86900; 86901; 88307; 90710; A9270; J2590; J2795; J3010; J7120

== ENCOUNTER 2025-01-09 10:09 | Emergency (ER) | payer OTHER, SELFPAY ==
--- NOTE | ~2025-01-09 | XR_ITS ---
XR cervical spine 4-5V 01/09/2025 10:45 Indication: Neck pain Procedure: 5 views cervical spine Comparison: No prior studies for comparison. Findings: Straightening of cervical lordosis, possibly due to muscle spasm. No fracture, subluxation or dislocation. Vertebral body heights are maintained. No significant disc narrowing. No prevertebral soft tissue abnormality. Odontoid process is normal. Lateral masses normally aligned. Impression: 1: No acute abnormality of the cervical spine. Reviewed, dictated and finalized at location B. Impression: 1: No acute abnormality of the cervical spine.
[2025-01-09 10:21] VITALS: BP 130/84; PULSE 87; RESP 16; TEMP 37.2; O2SAT 100
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
[2025-01-09 11:16] LABS: EDSTREPNEGPOS1 Positive (Negative)
== END 2025-01-09 11:49 | disposition home or self-care (01) ==
PROVIDERS: Emergency Provider Nurse Practitioner Family; PCP Obstetrics & Gynecology Gynecology
DX: J02.0 Streptococcal pharyngitis (principal); S13.9XXA Sprain of joints and ligaments of unspecified parts of neck, initial encounter; V43.52XA Car driver injured in collision with other type car in traffic accident, initial encounter; G44.209 Tension-type headache, unspecified, not intractable; S09.90XA Unspecified injury of head, initial encounter
CPT/HCPCS: 72050; 87880; 99213; G0463